=== PATIENT | female | born 1985 | race Caucasian/White ===

== ENCOUNTER 2017-07-07 05:03 | Day surgery (SDC) | payer MEDICAID ==
[~2017-07-07] VITALS: Ht 167.6 cm; Wt 65.9 kg
[2017-07-07 05:49] LABS: HCG URINE NEGATIVE (NEGATIVE)
[2017-07-07 05:50] LABS: BASOPHILS 0.1 % (0-2); EOSINOPHILS 0.5 % (0-7); HEMATOCRIT 37.2 % (36.0-48.0); HEMOGLOBIN 12.4 g/dL (12-16); IMMATURE GRANULOCYTES 0.3 % (0-5); LYMPHOCYTES 11.6 % (15-50); MCH 30.4 pg (26.0-34.0); MCHC 33.3 g/dL (31.0-37.0); MCV 91.2 fL (80.0-100.0); MEAN PLATELET VOLUME 9.3 fL (7.4-10.4); MONOCYTES 5.6 % (2-11); NEUTROPHILS 81.9 % (40-80); PLATELET COUNT 191 10x3/uL (130-400); RBC 4.08 10x6/uL (4.00-5.40); RDW 12.7 % (11.5-14.5); WBC 10.8 10x3/uL (4.8-10.8)
[2017-07-07 05:56] LABS: APPEARANCE HAZY (CLEAR); BILIRUBIN NEGATIVE (NEGATIVE); COLOR YELLOW (YELLOW); GLUCOSE NEGATIVE (NEGATIVE); KETONE NEGATIVE (NEGATIVE); NITRITE NEGATIVE (NEGATIVE); PROTEIN NEGATIVE (NEGATIVE); UROBILINOGEN NORMAL (NORMAL)
[2017-07-07 05:58] LABS: BACTERIA MODERATE /hpf (NONE SEEN); EPITHELIAL CELLS 0-5 /hpf (0-5); RED CELLS - URINE 0-5 /hpf (0-5); WHITE CELLS - URINE 0-5 /hpf (0-5)
[2017-07-07 06:05] LABS: ALBUMIN 3.6 g/dL (3.4-5.0); ANION GAP 15.4 mmol/L (8-16); BILIRUBIN - TOTAL 0.68 mg/dL (0.2-1.3); CALCIUM 8.9 mg/dL (8.5-10.1); CARBON DIOXIDE 24.4 mmol/L (21.0-32.0); POTASSIUM - SERUM 3.8 mmol/L (3.5-5.1); PROTEIN - SERUM 7.4 g/dL (6.4-8.2)
[2017-07-07 11:57] VITALS: BP 90/57
[2017-07-07] MEDS ORDERED: SURMONTIL PO (12:30)
[2017-07-07] MEDS ORDERED: JUNEL FE 1.5 M1 EACH PO (12:31)
[2017-07-07] MEDS ORDERED: BUPROPION HCL75 MG (12:32)
[2017-07-07] MEDS ORDERED: WELLBUTRIN SR150 MG PO (12:33)
[2017-07-07] MEDS ORDERED: NASACORT10.8 ML NASAL (12:34)
[2017-07-07] MEDS ORDERED: CROMOLYN SOD40 MG/ML NS (12:35)
[2017-07-07] MEDS ORDERED: HYDROCODON-ACE1 EAC7 PO (13:49)
[2017-07-07] MEDS ORDERED: ZOFRAN ODT4 MG/UDTAB PO (13:49)
[2017-07-07 13:57] VITALS: BP 110/86; Ht 167.6 cm; Wt 65.9 kg
[2017-07-07 17:02] VITALS: BP 104/63
== END 2017-07-07 17:46 | disposition home or self-care (01) ==
LOC: OBSVTIME → D.ER 05:03 → D.OPS 05:03 → D.ER 08:17 → OBSVTIME 08:17 → D.EDHOLD 08:17 → D.MS 11:27 → D.EDHOLD 11:27 → EDSTATUS 11:30 → D.MS 17:46 → D.OPS 17:46
PROVIDERS: Family Medicine
DX: K35.3 Acute appendicitis with localized peritonitis (principal); K21.9 Gastro-esophageal reflux disease without esophagitis; Z01.812 Encounter for preprocedural laboratory examination